=== PATIENT | female | born 1960 | race Caucasian/White ===

== ENCOUNTER 2018-08-06 15:06 | Emergency (ER) | payer OTHER ==
[2018-08-06 15:15] VITALS: BP 123/70; PULSE 69; RESP 16; TEMP 98
--- NOTE | 2018-08-06 15:43 | ED ---
Allergic Reaction HPI - General Chief complaint: Allergic Reaction Stated complaint: Allergic Reaction Time Seen by Provider: 08/06/18 15:22 Source: patient Mode of arrival: ambulatory Limitations: no limitations - History of Present Illness Initial Comments: This is a 58yo female who denies PMH who presents today for cc of b/l external eye irriation. Pt states that she was splashed in the eye with engine coolant 3 days ago while at work at [employer]. She states it hit her in the forehead no under pressure and dripped down towards eyes b/l. She states she closed her eyes to prevent anything from getting inside and then wiped eye with a towel. Mgmt had her rinse her eyes for 5 minutes just as a precaution. Pt continued to work that day because she was not experiencing any pain/visual changes. The liquid was room temperature. Pt states that the days following she was experiencing external eye irritation/itchy and redness at the area of contact from fluid. As the days progressed she felt like swelling increased and that is why she decided to present today. Pt denies any blurred vision, visual changes, pain with EOM, warmth of skin surrounding eyes, fever, chills, night sweats, blistering of skin or any other associated symptoms. Upon arrival pt VS stable. - Related Data Previous Rx's Medication Instructions Recorded Cephalexin [Keflex] 500 mg PO Q8H 7 Days #21 cap 08/06/18 predniSONE 10 mg PO DAILY 4 Days #4 tab 08/06/18 Allergies Allergy/AdvReac Type Severity Reaction Status Date / Time No Known Allergies Allergy Verified 08/06/18 15:15 Review of Systems ROS Statement: Those systems with pertinent positive or pertinent negative responses have been documented in the HPI. ROS Other: All systems not noted in ROS Statement are negative. Past Medical History Past Medical History: No Reported History History of Any Multi-Drug Resistant Organisms: None Reported Past Surgical History: Hysterectomy Past Psychological History: No Psychological Hx Reported Smoking Status: Current every day smoker Past Alcohol Use History: None Reported Past Drug Use History: None Reported General Exam - General Exam Comments Initial Comments: General: The patient is awake and alert, in no distress, and does not appear acutely ill. Eye: Pupils are equal, round and reactive to light, extra-ocular movements are intact. No nystagmus. There is normal conjunctiva bilaterally. No signs of icterus. No cornea injection b/l. No cornea opacities. No photophobia upon exam. VA 20/40 OD, OS, OU. External eye exam upper and lower lid erythema, dry skin and swelling b/l. No warmth to palpation. no tenderness to palpation. Ears, nose, mouth and throat: There are moist mucous membranes and no oral lesions. Neck: The neck is supple, there is no tenderness or JVD. Cardiovascular: There is a regular rate and rhythm. No murmur, rub or gallop is appreciated. Respiratory: Lungs are clear to auscultation, respirations are non-labored, breath sounds are equal. No wheezes, stridor, rales, or rhonchi. Musculoskeletal: Normal ROM, no tenderness. Strength 5/5. Sensation intact. Pulses equal bilaterally 2+. Neurological: A&O x 3. CN II-XII intact, There are no obvious motor or sensory deficits. Coordination appears grossly intact. Speech is normal. Skin: Skin is warm and dry and no rashes or lesions are noted. Psychiatric: Cooperative, appropriate mood & affect, normal judgment. Limitations: no limitations Course Vital Signs 08/06/18 15:13 Temperature 98.0 F Pulse Rate 69 Respiratory 16 Rate Blood Pressure 123/70 O2 Sat by Pulse 98 Oximetry Medical Decision Making - Medical Decision Making Pt denies any ocular symptoms, there is no photophobia on exam exam, pt is 20/ 40 b/l. Pt wears contact baseline, no opacities of cornea. There is erythema and soft tissue swelling above and below eyes b/l. this appears to be a contact dermatitis rather than an infection/orbital cellulitis. Poison control was contact by myself they stated that care is supportive at this time. Pt was given rx for antibiotics for risk of any secondary infection to only be taken for increase erythema, pain or warmth. In addition pt was given 10mg prednisone to be taken daily for 4 days to help alleviate contact dermaitis. Case discussed with Dr. Pizano who agreed with impression and plan. Pt discharged in stable condition with PCP f/u in 1-2 days. Pt verbalized understanding of plan d /c in stable condition. Disposition Clinical Impression: Contact dermatitis Disposition: HOME SELF-CARE Condition: Good Instructions: Contact Dermatitis (ED) Additional Instructions: Please use medication as discussed. Please do no take antibiotics unless redness spreading, as discussed. Please dispose of antibiotics if not used. Please follow-up with family doctor in the next 2 days. Please return to emergency room if the symptoms increase or worsen or for any other concerns. Prescriptions: Cephalexin [Keflex] 500 mg PO Q8H 7 Days #21 cap predniSONE 10 mg PO DAILY 4 Days #4 tab Is patient prescribed a controlled substance at d/c from ED?: No Referrals: None,Stated [Primary Care Provider] - 1-2 days Time of Disposition: 15:41
== END 2018-08-06 16:03 | disposition home or self-care (01) ==
LOC: EC 15:06
DX: L25.9 Unspecified contact dermatitis, unspecified cause (principal); F17.200 Nicotine dependence, unspecified, uncomplicated
CPT/HCPCS: 99283